=== PATIENT | male | born 2000 | race African-American/Black ===

== ENCOUNTER 2018-02-28 18:42 | Emergency (ER) | payer SELFPAY ==
[~2018-02-28] VITALS: Ht 170.2 cm; Wt 63.5 kg
[2018-02-28 18:46] VITALS: BP 122/64; PULSE 94; RESP 16; TEMP 97.5; O2SAT 99
--- NOTE | 2018-02-28 20:04 | PD ---
HPI Chief Complaint: Laceration/Skin Injury Time Seen by Provider: 19:50 Travel History International Travel<30 days: No Contact w/Intl Traveler<30days: No Traveled to known affect area: No History of Present Illness HPI 17-year-old male presents with a laceration to the left cheek. Prior to arrival he reports that he was "playing" with his mother and his mother accidentally hit his left cheek with a box office manager. He reports that he was unintentional. He now has a small laceration to his left cheek which is mildly painful, aching, aggravated by being cut with no alleviating factors. Symptom onset today. Last tetanus vaccination unknown. No other complaints. [facility] Past Medical History Medical History: Denies Significant Hx Influenza Vaccination: No Past Surgical History Surgical History: No Previous Surgery Social History Alcohol Use: No Tobacco Use: Yes Substance Use: No Allergies-Medications (Allergen,Severity, Reaction): Coded Allergies: No Known Allergies (Verified Allergy, Unknown, 02/28/18) Review of Systems General / Constitutional: No: Fever, Chills Eyes: No: Blurred Vision HENT: No: Headaches Skin: Positive Other (Positive for laceration, bleeding) Physical Exam Narrative GENERAL: Well-nourished male no acute distress SKIN: Warm and dry. 0.5 cm laceration of left cheek. No bleeding. HEAD: Atraumatic. Normocephalic. EYES: Pupils equal and round. No scleral icterus. No injection or drainage. ENT: No nasal bleeding or discharge. Mucous membranes pink and moist. NECK: Trachea midline. No JVD. CARDIOVASCULAR: Regular rate and rhythm. No murmur appreciated. RESPIRATORY: No accessory muscle use. Clear to auscultation. Breath sounds equal bilaterally. MUSCULOSKELETAL: No obvious deformities. NEUROLOGICAL: Awake and alert. No obvious cranial nerve deficits. Motor grossly within normal limits. Normal speech. Data Data Last Documented VS Vital Signs Date Time Temp Pulse Resp B/P (MAP) Pulse Ox O2 Delivery O2 Flow Rate FiO2 02/28/18 18:46 97.5 94 16 122/64 (83) 99 Orders Orders Tetanus/Diphtheria Tox Adult (Tetanus/Di (02/28/18 20:15) Ed Discharge Order (02/28/18 20:01) MDM Medical Decision Making Medical Screen Exam Complete: Yes Emergency Medical Condition: Yes Medical Record Reviewed: Yes Differential Diagnosis Laceration, puncture wound, abrasion Narrative Course Tetanus status updated. The laceration was repaired with Dermabond, he verbally consented. He is stable for discharge. Procedures Procedure Narrative LACERATION LOCATION: Left cheek LENGTH: 0.5 cm NUMBER OF STITCHES/CELESTE Dermabond REPAIR: The wound was copiously irrigated and explored without evidence of foreign body, tendon injury or neurovascular injury. The wound was closed using Dermabond. This was a single layer repair. A sterile dressing was applied. The patient was advised to keep the dressing clean and dry. Patient tolerated the procedure well. Diagnosis Primary Impression: Facial laceration Additional Instructions: Keep the wound clean and dry. Do not put any creams or lotions on the wound. This will flake off on its own. Med/Other Pt SpecificInfo: Wound Care Disposition: 01 DISCHARGE HOME Condition: Stable Paulo Maloney Feb 28, 2018 20:04
[2018-02-28] MEDS ORDERED: TETANUS/DIPHTHERIA TOXOID ADULT 0.5 ML VIAL IM ONE (20:15)
== END 2018-02-28 20:19 | disposition home or self-care (01) ==
LOC: NEPD 18:42
DX: S01.412A Laceration without foreign body of left cheek and temporomandibular area, initial encounter (principal); Z23 Encounter for immunization; W45.8XXA Other foreign body or object entering through skin, initial encounter
CPT/HCPCS: 12011; 90471; 90714